=== PATIENT | female | born 1985 | race Caucasian/White ===

== ENCOUNTER → 2016-10-11 | Outpatient (CLI) | payer OTHER ==
[~2016-10-11] MED LIST: ARIP1TAB15 PO; CLON0.5T3 PO; METH10TA4 PO; ZLF/100 PO
== END | disposition home or self-care (01) ==
LOC: C.PAPS 15:34
PROVIDERS: ATTEND Physician Assistant
DX: Z12.4 Encounter for screening for malignant neoplasm of cervix (principal); Z87.42 Personal history of other diseases of the female genital tract

== ENCOUNTER → 2016-10-11 | Outpatient (CLI) | payer OTHER ==
[2016-10-15 14:52] LABS: CHLAMYDIA TRACH RNA*** NOT DETECTED (NOT DETECTED); GC (NEIS GONORRHOEAE)RNA** NOT DETECTED (NOT DETECTED)
== END | disposition home or self-care (01) ==
LOC: C.LABSPEC 14:05
PROVIDERS: ATTEND Physician Assistant
DX: Z01.419 Encounter for gynecological examination (general) (routine) without abnormal findings (principal)

== ENCOUNTER → 2016-10-15 | Outpatient (CLI) | payer OTHER | END | disposition home or self-care (01) | LOC: C.LAB1850 12:01 | PROVIDERS: ATTEND Physician Assistant | DX: Z11.3 Encounter for screening for infections with a predominantly sexual mode of transmission (principal) ==

== ENCOUNTER → 2016-10-17 | Outpatient (CLI) | payer OTHER ==
--- NOTE | 2016-10-17 10:35 | DIAGNOSTIC IMAGING REPORT ---
CHEST 2 VIEWS ROUTINE CLINICAL HISTORY: Weight loss COMPARISON STUDY: 04/09/2013 FINDINGS: The cardiac and mediastinal contours are normal. There is no evidence of focal pulmonary consolidation. There is no evidence of failure. No pleural effusions are visualized.[ IMPRESSION: No active disease in the chest. Electronically signed by: Christophe Philippe M.D. 10/17/2016 10:34 AM Dictated Date/Time: 10/17/2016 10:33 AM
[2016-10-17 12:12] LABS: BASO % 0.4 %; BASO ABS # 0.03 K/uL (0-0.2); COMPLETE YES; EOS % 4.2 %; IG% 0.1 %; LYMPH % 35.7 %; LYMPH ABS # 2.75 K/uL (1.2-3.4); MEAN CELL VOLUME 93.4 fL (80-100); MEAN CORPUSCULAR HEMOGLOBIN 31.4 pg (25-34); MEAN CORPUSCULAR HGB CONC 33.7 g/dl (32-36); MEAN PLATELET VOLUME 10.4 fL (7.4-10.4); MONO % 10.4 %; NEUT % 49.2 %; PLATELET COUNT 238 K/uL (130-400); RED BLOOD COUNT 4.07 M/uL (4.2-5.4)
[2016-10-17 12:24] LABS: ALT/SGPT 12 U/L (12-78); BLOOD UREA NITROGEN 10 mg/dl (7-18); BUN/CREATININE RATIO 15.7 (10-20); CALCIUM 8.8 mg/dl (8.5-10.1); CARBON DIOXIDE 27 mmol/L (21-32); CHLORIDE 108 mmol/L (98-107); CREATININE 0.63 mg/dl (0.60-1.20); GLUCOSE 59 mg/dl (70-99); POTASSIUM 3.6 mmol/L (3.5-5.1); SODIUM 142 mmol/L (136-145)
[2016-10-17 12:34] LABS: ALB/GLOB RATIO 1.3 (0.9-2); ALKALINE PHOSPHATASE 59 U/L (45-117); AST/SGOT 5 U/L (15-37); THYROID STIMULATING HORMONE 0.969 uIu/ml (0.300-4.500)
== END | disposition home or self-care (01) ==
LOC: C.LABBFT 09:25
PROVIDERS: ATTEND Physician Assistant Medical
DX: R63.4 Abnormal weight loss (principal)

== ENCOUNTER → 2017-03-04 | Outpatient (CLI) | payer OTHER ==
[2017-03-04 17:39] LABS: ALT/SGPT 21 U/L (12-78); AST/SGOT 18 U/L (15-37); BLOOD UREA NITROGEN 9 mg/dl (7-18); BUN/CREATININE RATIO 13.6 (10-20); CALCIUM 8.7 mg/dl (8.5-10.1); CARBON DIOXIDE 28 mmol/L (21-32); CHLORIDE 108 mmol/L (98-107); CHOLESTEROL 123 mg/dl (0-200); CREATININE 0.64 mg/dl (0.60-1.20); GLUCOSE 76 mg/dl (70-99); SODIUM 140 mmol/L (136-145); TRIGLYCERIDES 43 mg/dl (0-150); VERY LOW DENSITY LIPOPROT CALC 9 mg/dl
[2017-03-04 17:46] LABS: ALB/GLOB RATIO 1.3 (0.9-2); ALKALINE PHOSPHATASE 49 U/L (45-117); CHOLESTEROL/HDL RATIO 2.6; HDL CHOLESTEROL 47 mg/dl; LDL CHOLESTEROL CALCULATED 67 mg/dl; THYROID STIMULATING HORMONE 0.905 uIu/ml (0.300-4.500)
[2017-03-04 17:48] LABS: BENZODIAZEPINE, URINE NEG (NEG); COCAINE,URINE NEG (NEG); PHENCYCLIDINE, URINE NEG (NEG)
[2017-03-04 17:51] LABS: BASO % 0.4 %; BASO ABS # 0.03 K/uL (0-0.2); COMPLETE YES; EOS % 4.6 %; IG% 0.3 %; MEAN CELL VOLUME 91.8 fL (80-100); MEAN CORPUSCULAR HEMOGLOBIN 31.6 pg (25-34); MEAN CORPUSCULAR HGB CONC 34.4 g/dl (32-36); MEAN PLATELET VOLUME 10.5 fL (7.4-10.4); MONO % 11.1 %; NEUT % 38.6 %; PLATELET COUNT 246 K/uL (130-400); RED BLOOD COUNT 3.92 M/uL (4.2-5.4); WHITE BLOOD COUNT 7.11 K/uL (4.8-10.8)
[2017-03-05 07:07] LABS: ESTIMATED AVERAGE GLUCOSE 100 mg/dl; HA1C FLAG Normal (Normal)
--- NOTE | 2017-03-12 13:26 | CODING QUERY MEDICAL NECESSITY ---
CQSUPPORTING DIAGNOSIS NEEDED A supporting diagnosis is required for the test/procedure performed on this patient in order for us to be reimbursed by the patient's insurance. Please provide a supporting diagnosis for the following test/procedure listed below next to the test name along with your signature. *If there is no additional diagnosis for this patient that would support the following test/procedure please document that below next to the test/procedure. Test(s)/Procedure(s) that require a supporting diagnosis: DOS 03/04/17 GLYCATED HEMOGLOBIN TEST THYROID TESTS Provider Signature: Date: Thank you Kasia Haro [facility] Information Management Once completed, please kindly fax back to [phone] For questions please call [phone]
== END | disposition home or self-care (01) ==
LOC: C.LABBFT 12:00
PROVIDERS: ATTEND Physician Assistant
DX: Z79.899 Other long term (current) drug therapy (principal)

== ENCOUNTER → 2017-10-17 | Outpatient (CLI) | payer OTHER ==
[~2017-10-17] MED LIST changes: +AMPH10TA2 PO; +HYDR-5688 PO
== END | disposition home or self-care (01) ==
LOC: C.LABSPEC 13:35
PROVIDERS: ATTEND Physician Assistant
DX: N89.8 Other specified noninflammatory disorders of vagina (principal)

== ENCOUNTER 2017-10-23 12:02 | Emergency (ER) | payer OTHER ==
[~2017-10-23] VITALS: Ht 162.6 cm; Wt 49.0 kg
[~2017-10-23 12:02] MED LIST changes: -AMPH10TA2 PO; -HYDR-5688 PO
[2017-10-23 12:05] VITALS: TEMP 36.6; Ht 162.6 cm; Wt 49.0 kg
[2017-10-23] MEDS ORDERED: OXYCODONE/ACETAMINOPHEN 5-325 TAB PO STA (12:41)
[2017-10-23] MEDS ORDERED: AMPH10TA2 PO (13:02)
--- NOTE | 2017-10-23 13:39 | DIAGNOSTIC IMAGING REPORT ---
L-SPINE MIN 4 VIEWS ROUTINE CLINICAL HISTORY: 32 years-old Female presenting with thoracic and lumbar pain after heavy lifting on Saturday. TECHNIQUE: Frontal, bilateral oblique, lateral, and coned in lateral views of the lumbar spine were obtained. COMPARISON: CT of the abdomen and pelvis from 10/12/2012. FINDINGS: No significant scoliosis. Normal lumbar lordosis. Vertebral bodies maintain normal height and alignment. Intervertebral disc heights preserved. No significant degenerative change. No osseous neural foraminal narrowing. No compression deformity or subluxation. IMPRESSION: Normal radiographic evaluation of the lumbar spine. Electronically signed by: Evelio Sanford M.D. 10/23/2017 1:38 PM Dictated Date/Time: 10/23/2017 1:37 PM
--- NOTE | 2017-10-23 13:54 | DIAGNOSTIC IMAGING REPORT ---
THORACIC SPINE 3 VIEWS CLINICAL HISTORY: Thoracic back pain after lifting. FINDINGS: AP, lateral, and swimmer's views of the thoracic spine are correlated with lateral chest radiograph dated 04/09/2013. The skeletal structures are well mineralized. There is no radiographic evidence of fracture or malalignment involving the thoracic spine. Vertebral body height and alignment are maintained. The transverse processes and pedicles are grossly intact as seen on the frontal view. The intervertebral disc spaces are preserved. A calcified mediastinal lymph node is noted. The lung parenchyma is clear as imaged. IMPRESSION: Unremarkable radiographic assessment of the thoracic spine. Electronically signed by: José Miguel Fajardo M.D. 10/23/2017 1:53 PM Dictated Date/Time: 10/23/2017 1:52 PM
[2017-10-23] MEDS ORDERED: HYDR-5688 PO (14:12)
[2017-10-23 14:23] VITALS: BP 133/76; PULSE 68; O2SAT 99
--- NOTE | 2017-10-24 07:11 | EMERGENCY ROOM VISIT NOTE ---
ED Visit Note First contact with patient: 12:16 Chief Complaint: Back pain. History of Present Illness: Ms. Colin is a 32-year-old white female who ambulates into the ED accompanied by male friend complaining of thoracic and lumbar back pain. Historically patient denies any previous significant back injuries or surgeries. Patient reports she was working on Saturday, 3 days ago and was doing a lot of heavy lifting of frozen foods boxes with a lot of twisting of her back. When she arrived home from work she started having an achiness sensation throughout the thoracic spine and then her lumbar spine. She reports initially her pain was mild and has gradually increased. She describes her pain as a deep achy sensation and now it is sharp and stabbing. She rates her discomfort 10/10. There is minimal radiation of her pain into the proximal aspects of both buttocks. She reports she has been using ice and acetaminophen without relief of her discomfort. Her pain worsens with flexion of the back and moving from the sitting to the standing position. She has not identified any alleviating factors related to the pain. Associated with her pain she does report she has mild paresthesias of the bilateral upper buttocks. She denies fevers, chills, sweats, skin eruptions, skin color changes, upper respiratory tract symptoms, shortness of breath, cough, chest pain, abdominal pain, nausea, vomiting, urinary symptoms, hematuria, lower extremity weakness/ tingling, genital paresthesias, bowel and bladder dysfunction. Review of Systems: As noted above in history of present illness. All body systems were reviewed and found to be negative as noted above. Past Medical History: Attention deficit disorder, anxiety, depression, status post tubal ligation. Current Medications: Klonopin, Adderall, Sertraline, Aripiprazole. Allergies to Medications: Patient denies. Social History: Patient is currently employed; she feels safe in her home environment; she admits to tobacco use and denies alcohol use. Physical Examination: Vital Signs: Date Time Temp Pulse Resp B/P (MAP) Pulse Ox O2 Delivery O2 Flow Rate FiO2 10/23/17 14:23 68 20 133/76 99 10/23/17 12:05 36.6 84 16 96/66 100 Room Air GENERAL: 32-year-old female in moderate distress due to pain, nontoxic-appearing , afebrile and hemodynamically stable. Patient anxious and tearful NEUROLOGICAL: Awake, alert and oriented to person, place and time. Answering questions appropriately and following commands. Normal gait. Good hand eye coordination. No focal motor sensory deficits. SKIN: Warm, dry and pink. No soft tissue eruptions or trauma noted. HEENT: Atraumatic and normocephalic. PERRL. Sclera white and conjunctiva pink. No drainage from naris. Oral cavity moist and pink. Pharynx is nonerythematous or edematous. Speech normal. No lymphadenopathy. Trachea midline. No jugular venous distention. BACK: No tenderness over the bony spine. Moderate tenderness throughout the paraspinous muscles in the thoracic and lumbar area without palpable spasm. Decreased range of motion in flexion at the waist. Negative straight leg raise test. No CVA tenderness. THORAX: Lungs sounds are clear to auscultation and equal bilaterally with symmetrical chest wall. No wheezing, rales or rhonchi. No crepitus, tenderness , subcutaneous air or deformities noted. HEART: Regular rate and rhythm. No gallops, rubs or murmurs are appreciated. ABDOMEN: Flat, soft and nontender. Positive bowel sounds in all quadrants. No guarding, rigidity or organomegaly. EXTREMITIES: Moves all extremities well on command and with purpose. All distal neurovascular statuses are intact and equal bilaterally. No calf tenderness or cords. 4/5 muscle strength in all movements of the hip, knee and ankle. 2+ patellar and Achilles deep tendon reflexes intact and equal bilaterally. She was able to distinguish light sensations to all dermatomes of the legs. ED Course: Patient is assessed as noted above. Patient's medication list was reviewed. Patient was given 1 Percocet tablet 5/325 mg by mouth. Thoracic spine x-rays: Were read by myself and the radiologist showing no fractures or subluxations. Vertebral height and alignment are maintained. Intervertebral disc spacing are preserved. Lumbar spine x-rays: Were read by myself and the radiologist showing no fractures or subluxations. Disc heights preserved. Patient was reassessed multiple times during her stay in the emergency department. Patient was educated about today's findings and instructed on her treatment plan ; she verbalized understanding and agreement with this plan. Clinical Impression: Thoracic and lumbar back strain. Work-related injury. Decision-Making: Initially my differential diagnosis I considered muscular strain, muscle spasm, degenerative disc disease, herniated disc and other causes. Disposition: Patient discharged home in stable condition accompanied by her ; prior to departure she was reassessed and subjectively reported she was feeling much better and rated her discomfort 08/24 Plan: Comfort measures were discussed with the patient including rest, restrictive heavy lifting, a sliding pain medication scale of ibuprofen, acetaminophen and [place]; her name was checked on state database and no red flags were noted and she was given appropriate narcotic precautions. Patient was signed off of work for 4 days and instructed to follow-up with Workmen's Compensation for recheck and return to work instruction. Patient was encouraged return the ED for worsening/uncontrolled pain, extremity weakness/numbness/tingling, genital paresthesias, bowel and bladder this function or any new/concerning symptoms.
== END 2017-10-23 14:25 | disposition home or self-care (01) ==
LOC: C.EDB 12:04 → C.EDD 14:25
DX: S39.012A Strain of muscle, fascia and tendon of lower back, initial encounter (principal); Y99.0 Civilian activity done for income or pay; X50.9XXA Other and unspecified overexertion or strenuous movements or postures, initial encounter; F90.9 Attention-deficit hyperactivity disorder, unspecified type; F41.9 Anxiety disorder, unspecified; F32.9 Major depressive disorder, single episode, unspecified; F17.200 Nicotine dependence, unspecified, uncomplicated

== ENCOUNTER 2017-10-25 16:34 | Emergency (ER) | payer OTHER ==
[~2017-10-25] VITALS: Ht 162.6 cm; Wt 48.8 kg
[~2017-10-25 16:34] MED LIST changes: +AMPH10TA2 PO; +HYDR-5688 PO; -METH10TA4 PO
[2017-10-25 16:59] VITALS: TEMP 37; Ht 162.6 cm; Wt 48.8 kg
[2017-10-25] MEDS ORDERED: ACETAMINOPHEN 500 MG TAB PO STA (17:18)
[2017-10-25] MEDS ORDERED: TRAMADOL/ACETAMINOPHEN 37.5/325MG TAB PO STA (17:18)
[2017-10-25] MEDS ORDERED: IBUPROFEN 600 MG TAB PO STA (17:18)
[2017-10-25] MEDS ORDERED: CYCL10TA6 PO (17:24)
[2017-10-25] MEDS ORDERED: TRAM-453 PO (17:24)
[2017-10-25] MEDS ORDERED: METH4PAK PO (17:24)
--- NOTE | 2017-10-25 17:26 | EMERGENCY ROOM VISIT NOTE ---
History First contact with patient: 17:08 Chief Complaint: BACK PAIN Stated Complaint: BACK PAIN History of Present Illness The patient is a 32 year old female who presents to the Emergency Room with complaints of ongoing back pain in her lower back radiating down the outside of her thighs bilaterally. The patient injured her back at work 6 days ago lifting a heavy box. She denies any weakness in lower extremities. No urinary or bowel incontinence. She describes it as a burning pain. She was seen here 2 days ago and prescribed Totz. She has been taking that with minimal relief. It has also caused nausea, which is why she returns to the emergency department today. She denies any numbness or tingling in her legs or groin. Review of Systems 6 system review negative. Please see pertinent positives in the history of present illness section. Past Medical/Surgical History Medical Problems: (1) ALCOHOL ABUSE-UNSPEC (2) ASTHMA, UNSPECIFIED (3) Bipolar 1 disorder (4) BIPOLAR DISORDER, UNSPECIFIED (5) Depression (6) DEPRESSIVE DISORDER NEC (7) DRUG ABUSE NEC-UNSPEC (8) ESOPHAGEAL REFLUX (9) FAM HX-DIABETES MELLITUS (10) FAM HX-OTH KIDNEY DISEASES (11) FAMILY HISTORY OF OTHER CARDIOVASCULAR DISEASES (12) FAMILY HX-CONDITION NEC (13) FAMILY HX-MALIGNANCY NOS (14) OVARIAN CYST NEC/NOS (15) PAP SMEAR OF CERVIX W LOW GR SQUAMOUS INTRAEPITH LES LGSIL (16) TUBAL PREG W/O INTRAUTERINE (17) Vaginal delivery (18) VAGINITIS NOS Surgical Problems: (1) H/O tubal ligation (2) S/P tubal ligation Family History Diabetes mellitus FH: heart disease FH: lung disease FHx: cancer FHx: gallbladder disease Hypertension Kidney disease Seizures Social History Smoking Status: Current Every Day Smoker Alcohol Use: none Drug Use: none Marital Status: in relationship Housing Status: lives with family, lives with significant other Current/Historical Medications Scheduled Amphetamine-Dextroamphetamine 10MG (Adderall 10MG), 10 MG PO BID Aripiprazole (Aripiprazole), 10 MG PO HS Cyclobenzaprine Hcl (Flexeril), 10 MG PO TID Methylprednisolone (Medrol Dosepak), 0 PO DAILY Sertraline HCl (Sertraline HCl), 200 MG PO HS Tramadol Hcl (Ultram), 50 MG PO Q4H Scheduled PRN Clonazepam (Klonopin), 0.5 MG PO TID PRN for Anxiety Hydrocodone/Acetaminophen 5MG/325MG (Totz 5MG/325MG), 1-2 TABLET PO Q6H PRN for Pain Physical Exam Vital Signs Date Time Temp Pulse Resp B/P (MAP) Pulse Ox O2 Delivery O2 Flow Rate FiO2 10/25/17 17:50 73 16 116/76 100 10/25/17 16:59 37.0 95 18 105/69 100 Room Air Physical Exam VITALS: Vitals are noted on the nurse's note and reviewed by myself. Vital signs stable. GENERAL: 32-year-old female, mildly uncomfortable in appearance,, SKIN: The skin was without rashes, erythema, edema, or bruising. HEAD: Normocephalic atraumatic. NECK: Cervical spine is nontender. HEART: Regular rate and rhythm without murmurs gallops or rubs. LUNGS: Clear to auscultation bilaterally without wheezes, rales or rhonchi. No accessory muscle use. MUSCULOSKELETAL: Mild tenderness over the lumbar spinous processes and the SI joint bilaterally. Diffuse mild tenderness over the paraspinous muscles in the lumbar area. Unable to perform straight leg test bilaterally secondary to pain. Quadricep and hamstring strength 5/5 bilaterally. Sensation in the lower extremities is intact. NEURO: Patient was alert and oriented to person place and time. Normal sensation to touch. No focal neurological deficits. Medical Decision & Procedures Medications Administered Medications (Trade) Dose Ordered Sig/Vince Route Start Time Stop Time Status Last Admin Dose Admin Tramadol/ Acetaminophen (Ultracet Tab) 1 tab ONE STAT PO 10/25/17 17:18 10/25/17 17:20 DC 10/25/17 17:47 1 TAB Prednisone (PredniSONE TAB) 60 mg NOW STAT PO 10/25/17 17:18 10/25/17 17:20 DC 10/25/17 17:45 60 MG Acetaminophen (Tylenol Tab) 1,000 mg NOW STAT PO 10/25/17 17:18 10/25/17 17:20 DC 10/25/17 17:46 1,000 MG Ibuprofen (Motrin Tab) 600 mg ONE STAT PO 10/25/17 17:18 10/25/17 17:20 DC 10/25/17 17:45 600 MG ED Course The patient was seen and examined She was medicated with Ultram, prednisone and ibuprofen Discharge instructions were reviewed, and she was discharged in good condition Medical Decision Differential diagnosis: Muscular strain, ligamentous injury, subluxation, spondylolisthesis, spondylosis, herniated disc, contusion, muscle spasm This patient is a 32-year-old female that returns to the emergency department with ongoing back pain after an injury of lifting something heavy at work. On exam, she was neurovascularly intact. She was seen here 2 days ago. Imaging was performed. I did not find repeat imaging necessary. The patient has been taking her hydrocodone with minimal relief and causing her nausea. The patient will be sent home with tramadol, a Medrol Dosepak and a muscle relaxant. She was advised to follow-up with her primary care doc in addition to [facility] for further evaluation and ongoing treatment. She will return to the ER with worsening symptoms. This chart was completed in part utilizing [employer] Speech Voice Recognition software. Attempts were made to minimize the grammatical errors, random word insertions, pronoun errors and incomplete sentences. Any formal questions or concerns about the content, text or information contained within the body of this dictation should be directly addressed to the provider for clarification. Medication Reconcilliation Current Medication List: was personally reviewed by me Blood Pressure Screening Patient's blood pressure: Normal blood pressure Impression Primary Impression: Low back strain Departure Information Dispostion Home / Self-Care Condition GOOD Prescriptions Methylprednisolone (MEDROL DOSEPAK) 4 Mg Dejon 0 PO DAILY, #1 PKT Prov: Michelle Quigley PA-C 10/25/17 Cyclobenzaprine Hcl (FLEXERIL) 10 Mg Tab 10 MG PO TID for Muscle Spasms, #20 TAB Prov: Michelle Quigley PA-C 10/25/17 Tramadol Hcl (ULTRAM) 50 Mg Tab 50 MG PO Q4H for Pain, #20 TAB PRN PAIN Prov: Michelle Quigley PA-C 10/25/17 Referrals No Doctor, Assigned (PCP) Patient Instructions My [facility] Additional Instructions You were evaluated in the emergency department for back pain Please continue ibuprofen 600 mg every 8 hours as needed for pain Please take Ultram 1 tab every 4 hours as needed for severe pain. Please do not drink alcohol or drive while taking this medication. Please take the entire course of steroids Flexeril every 8 hours as needed for muscle spasm/pain. Please also do not drink alcohol or drive while taking this medication. 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
[2017-10-25 17:50] VITALS: BP 116/76; PULSE 73; O2SAT 100
== END 2017-10-25 17:50 | disposition home or self-care (01) ==
LOC: C.EDB 16:35 → C.EDD 17:50
DX: S39.012A Strain of muscle, fascia and tendon of lower back, initial encounter (principal); X50.0XXA Overexertion from strenuous movement or load, initial encounter; Y99.0 Civilian activity done for income or pay; J45.909 Unspecified asthma, uncomplicated; F31.9 Bipolar disorder, unspecified; K21.9 Gastro-esophageal reflux disease without esophagitis; Z83.3 Family history of diabetes mellitus; Z82.49 Family history of ischemic heart disease and other diseases of the circulatory system; Z80.9 Family history of malignant neoplasm, unspecified; Z98.51 Tubal ligation status; Z84.1 Family history of disorders of kidney and ureter; Z82.0 Family history of epilepsy and other diseases of the nervous system; F17.210 Nicotine dependence, cigarettes, uncomplicated; Z79.899 Other long term (current) drug therapy